=== PATIENT | female | born 1945 | race African-American/Black ===

== ENCOUNTER 2021-11-17 15:14 | Emergency (ER) | payer MEDICAID, OTHER ==
[~2021-11-17] VITALS: Ht 167.6 cm; Wt 73.0 kg
[2021-11-17] MEDS ORDERED: PIPERACILLIN/TAZ 3.375G PREMIX 50 ML IV ONE (15:45)
[2021-11-17] MEDS: VANCOMYCIN 1G PREMIX 200 ML IV ONE (15:45)
[2021-11-17] MEDS: SODIUM CHLORIDE 0.9% 1000ML BAG (SEPSIS BOLUS) IV ONE ×2 (15:45→21:00)
[2021-11-17] MEDS: ONDANSETRON HCL 4MG/2ML INJ IV STA (15:47)
[2021-11-17] MEDS: MORPHINE SULFATE 4 MG/ML CPJ (NOT FOR IM USE) IV STA (15:47)
[2021-11-17] MEDS: LEVOFLOXACIN 750MG PREMIX 150 ML IV ONE (16:00)
[2021-11-17] MEDS ORDERED: VANCOMYCIN 1G PREMIX 200 ML IV ONE (16:00)
[2021-11-17 17:13] LABS: BASOPHILS % 0.6 % (0.0-2.0); EOSINOPHILS % 1.2 % (0.0-5.0); HEMATOCRIT. 39.9 % (36.0-48.0); HEMOGLOBIN. 12.5 g/dL (12.0-16.0); LYMPHOCYTES % 13.2 % (20.0-50.0); MEAN CORPUSCULAR HEMOGLOBIN 28.4 pg (28.0-32.0); MEAN CORPUSCULAR VOLUME 90.9 fL (81.0-99.0); MEAN PLATELET VOLUME 10.2 fl (7.4-10.4); MONOCYTES % 5.9 % (2.0-8.0); NEUTROPHILS % 79.1 % (40.0-76.0); PLATELET 315 x1000/uL (130-400); RED BLOOD CELL COUNT 4.38 mill/uL (4.2-5.4); RED CELL DISTRIBUTION WIDTH 18.1 % (11.6-14.6)
[2021-11-17 17:20] LABS: CHLORIDE 109 mEq/L (98-107); INR 1.2; PARTIAL THROMBOPLASTIN TIME 25.8 sec (23.4-31.0); PROTHROMBIN TIME 12.4 sec (9.6-11.0)
[2021-11-17] MEDS ORDERED: ONDANSETRON HCL 4MG/2ML INJ IV ONE (20:15)
[2021-11-17] MEDS: VANCOMYCIN 1G PREMIX 200 ML IV NR (21:12)
[2021-11-17 21:54] VITALS: BP 135/82
[2021-11-17 22:39] LABS: CLARITY URINE CLEAR (CLEAR); COLOR URINE YELLOW (YELLOW); KETONES URINE 1+ (NEGATIVE); LEUKOCYTE ESTERASE URINE 2+ (NEGATIVE); NITRITE URINE NEGATIVE (NEGATIVE); OCCULT BLOOD URINE TRACE (NEGATIVE); PROTEIN URINE 1+ (NEGATIVE); SPECIFIC GRAVITY URINE 1.025 (1.005-1.030); UROBILINOGEN URINE 0.2 E.U./dL (0.2-1.0)
== END 2021-11-17 22:35 | disposition short-term general hospital (02) ==
LOC: ER 15:14 → EDBEDREQSVC 15:52 → EDBEDREQTM 15:52 → EDBEDREQ 15:52 → ER 22:35 → CANBEDREQ 22:40
DX: R10.84 Generalized abdominal pain (principal); E86.0 Dehydration; R11.2 Nausea with vomiting, unspecified; E11.9 Type 2 diabetes mellitus without complications; Z88.6 Allergy status to analgesic agent; Z88.0 Allergy status to penicillin; Z88.8 Allergy status to other drugs, medicaments and biological substances
CPT/HCPCS: 36415; 71045; 74176; 80053; 81003; 82962; 83605; 83690; 83880; 84145; 84484; 85025; 85610; 85730; 87040; 87086; 87426; 93005; 96365; 96366; 96367; 96375; 99285; C9803; J1956; J2270; J2405; J3370; J7030

== ENCOUNTER 2021-11-28 22:27 | Inpatient (IN) | payer OTHER, MEDICAID ==
[~2021-11-28] VITALS: Ht 165.1 cm; Wt 67.1 kg
[2021-11-28] MEDS ORDERED: SODIUM CHLORIDE 0.9% 1,000 ML IV ONE (23:00)
[2021-11-29] MEDS ORDERED: DILTIAZEM HCL 5MG/ML 5ML VIAL IV ONE
[2021-11-29 00:38] LABS: BASOPHILS % 0.7 % (0.0-2.0); EOSINOPHILS % 0.5 % (0.0-5.0); HEMATOCRIT. 37.2 % (36.0-48.0); HEMOGLOBIN. 11.8 g/dL (12.0-16.0); MEAN PLATELET VOLUME 11.5 fl (7.4-10.4); MONOCYTES % 6.9 % (2.0-8.0); NEUTROPHILS % 82.9 % (40.0-76.0); PLATELET 334 x1000/uL (130-400); RED BLOOD CELL COUNT 4.22 mill/uL (4.2-5.4); RED CELL DISTRIBUTION WIDTH 18.3 % (11.6-14.6)
[2021-11-29 00:44] LABS: CHLORIDE 106 mEq/L (98-107); INR 1.1; PROTHROMBIN TIME 12.1 sec (9.6-11.0)
[2021-11-29] MEDS ORDERED: ENOXAPARIN 60MG/0.6ML SYR SUBCUT ONE (01:30)
[2021-11-29] MEDS ORDERED: IOHEXOL-350 100 ML BOTTLE ONE (02:15)
[2021-11-29] MEDS ORDERED: DILTIAZEM 125MG/125ML PMX 125 ML IV NR ×2 (02:30→03:00)
[2021-11-29] MEDS ORDERED: SODIUM CHLORIDE 0.9% 1,000 ML IV ONE (03:00)
[2021-11-29] MEDS ORDERED: HEPARIN 5000 UNITS/ML VIAL IV ONE (05:00)
[2021-11-29] MEDS ORDERED: HEPARIN 25,000 UNITS PREMIX 250 ML IV ONE (05:00)
[2021-11-29] MEDS ORDERED: HEPARIN BOLUS PRN aPTT 37-44 IV ×2 (05:15→12:00)
[2021-11-29] MEDS ORDERED: HEPARIN 80 UNITS/KG BOLUS IV SCH ×2 (05:15→06:00)
[2021-11-29] MEDS: HEPARIN 25,000 UNITS PREMIX 250 ML IV SCH ×2 (06:36→22:04)
[2021-11-29] MEDS ORDERED: CLONIDINE 0.1MG TABLET PO PRN (07:45)
[2021-11-29] MEDS ORDERED: ACETAMINOPHEN 325MG TABLET PO PRN ×2 (07:45)
[2021-11-29] MEDS ORDERED: MAGNESIUM/ALUMINUM HYDROXIDE/SIMETHICONE 30ML UDC PO PRN (07:45)
[2021-11-29] MEDS ORDERED: GUAIFENESIN 200MG/10ML SUGAR FREE UDC PO PRN (07:45)
[2021-11-29] MEDS ORDERED: IPRATROPIUM/ALBUTEROL 0.5-3(2.5)MG/3ML NEB NEB PRN (07:45)
[2021-11-29] MEDS ORDERED: ONDANSETRON HCL 4MG/2ML INJ IV PRN (07:45)
[2021-11-29] MEDS: HYDROCODONE/ACETAMINOPHEN 5/325MG TABLET PO PRN (09:05)
[2021-11-29] MEDS ORDERED: HEPARIN BOLUS PRN aPTT <36 IV (12:00)
[2021-11-29 12:04] LABS: BASOPHILS % 0.5 % (0.0-2.0); EOSINOPHILS % 0.5 % (0.0-5.0); HEMATOCRIT. 35.1 % (36.0-48.0); HEMOGLOBIN. 11.2 g/dL (12.0-16.0); LYMPHOCYTES % 8.4 % (20.0-50.0); MEAN CORPUSCULAR VOLUME 88.1 fL (81.0-99.0); MEAN PLATELET VOLUME 10.9 fl (7.4-10.4); MONOCYTES % 6.7 % (2.0-8.0); NEUTROPHILS % 83.9 % (40.0-76.0); PLATELET 339 x1000/uL (130-400); RED BLOOD CELL COUNT 3.99 mill/uL (4.2-5.4); RED CELL DISTRIBUTION WIDTH 18.1 % (11.6-14.6)
[2021-11-29] MEDS: METOPROLOL TARTRATE 25MG TABLET PO SCH ×3 (12:05→22:00)
[2021-11-29 12:10] LABS: CHLORIDE 111 mEq/L (98-107)
[2021-11-29 12:18] LABS: CREATINE KINASE MB FRACTION 5.3 ng/mL (0.5-3.6)
[2021-11-29 12:24] LABS: PHOSPHORUS 2.8 mg/dL (2.5-4.9); T4 FREE 1.58 ng/dL (0.76-1.46); TOTAL IRON BINDING CAPACITY 120 ug/dL (250-450)
[2021-11-29 14:00] VITALS: BP 100/50
[2021-11-29 15:00] VITALS: BP 120/70
[2021-11-29 15:14] VITALS: BP 120/60
[2021-11-29 16:03] VITALS: BP 116/70
[2021-11-29] MEDS ORDERED: NALOXONE HCL 0.4MG/ML VIAL IV PRN (17:15)
[2021-11-29 18:26] LABS: FOLIC ACID (FOLATE) SERUM 5.9 ng/mL (>5.38)
[2021-11-29 19:29] LABS: CREATINE KINASE MB FRACTION 5.1 ng/mL (0.5-3.6)
[2021-11-29 20:00] VITALS: BP 127/68
[2021-11-29 22:07] VITALS: BP 102/75
[2021-11-30] VITALS (17 sets, daily range): BP systolic 96–132; BP diastolic 55–89
[2021-11-30 02:13] LABS: BASOPHILS % 0.5 % (0.0-2.0); EOSINOPHILS % 0.7 % (0.0-5.0); HEMATOCRIT. 36.8 % (36.0-48.0); HEMOGLOBIN. 11.9 g/dL (12.0-16.0); LYMPHOCYTES % 8.5 % (20.0-50.0); MEAN CORPUSCULAR HEMOGLOBIN 28.6 pg (28.0-32.0); MONOCYTES % 6.6 % (2.0-8.0); NEUTROPHILS % 83.7 % (40.0-76.0); PLATELET 379 x1000/uL (130-400); RED BLOOD CELL COUNT 4.18 mill/uL (4.2-5.4); RED CELL DISTRIBUTION WIDTH 18.6 % (11.6-14.6)
[2021-11-30 02:21] LABS: CHLORIDE 112 mEq/L (98-107)
[2021-11-30] MEDS: METOPROLOL TARTRATE 25MG TABLET PO SCH (08:24)
[2021-11-30] MEDS ORDERED: METOPROLOL TARTRATE 50MG TABLET PO SCH ×2 (09:00→21:00)
[2021-11-30] MEDS ORDERED: METOPROLOL TARTRATE 25MG TABLET PO NR (09:15)
[2021-11-30] MEDS: HEPARIN 25,000 UNITS PREMIX 250 ML IV SCH ×2 (11:35→13:49)
[2021-11-30] MEDS: HYDROCODONE/ACETAMINOPHEN 5/325MG TABLET PO PRN (11:43)
[2021-11-30] MEDS ORDERED: APIXABAN 5 MG TABLET PO SCH (18:00)
[2021-11-30] MEDS ORDERED: METOPROLOL TARTRATE 25MG TABLET PO SCH (18:00)
[2021-11-30] MEDS: APIXABAN 5 MG TABLET PO SCH (18:32)
[2021-12-01] VITALS (15 sets, daily range): BP systolic 101–143; BP diastolic 60–103
[2021-12-01] MEDS: METOPROLOL TARTRATE 25MG TABLET PO SCH ×2 (08:36→21:18)
[2021-12-01] MEDS: APIXABAN 5 MG TABLET PO SCH ×2 (08:37→16:43)
[2021-12-07] MEDS ORDERED: APIXABAN 5 MG TABLET PO SCH (09:00)
== END 2021-12-01 22:00 | disposition short-term general hospital (02) | DRG 175 ==
LOC: ER 22:27 → EDBEDREQSVC 11-29 01:18 → EDBEDREQ 11-29 01:18 → EDBEDREQTM 11-29 01:18 → MICUSO 11-29 02:24 → EDBEDREQSVC 11-29 02:29 → EDBEDREQTM 11-29 02:29 → EDBEDREQ 11-29 02:29 → SUPCPDRO 11-29 07:34 → ENRESERV 11-29 07:47 → 5EST 11-29 14:06
PROVIDERS: ADMIT Internal Medicine; ATTEND Internal Medicine
DX: I26.99 Other pulmonary embolism without acute cor pulmonale (principal); G93.41 Metabolic encephalopathy; I82.403 Acute embolism and thrombosis of unspecified deep veins of lower extremity, bilateral; R62.7 Adult failure to thrive; I48.91 Unspecified atrial fibrillation; I11.0 Hypertensive heart disease with heart failure; E78.00 Pure hypercholesterolemia, unspecified; E78.5 Hyperlipidemia, unspecified; E11.69 Type 2 diabetes mellitus with other specified complication; I50.9 Heart failure, unspecified; Z20.822 Contact with and (suspected) exposure to COVID-19; Z88.0 Allergy status to penicillin; Z74.01 Bed confinement status; Z68.24 Body mass index [BMI] 24.0-24.9, adult; Z88.8 Allergy status to other drugs, medicaments and biological substances; Z79.02 Long term (current) use of antithrombotics/antiplatelets; Z79.84 Long term (current) use of oral hypoglycemic drugs; Z89.412 Acquired absence of left great toe
CPT/HCPCS: 36415; 71045; 71275; 80048; 80053; 82550; 82553; 82607; 82728; 82746; 83540; 83550; 83605; 83735; 83880; 84100; 84145; 84439; 84443; 84484; 85025; 85379; 87426; 93005; 93306; 93970; 99291; J1644; J1650; J3490; J7030; Q9967

== ENCOUNTER 2021-12-20 16:15 | Emergency (ER) | payer OTHER, MEDICAID ==
[~2021-12-20] VITALS: Ht 170.2 cm; Wt 73.0 kg
[2021-12-20] MEDS ORDERED: HYDROCODONE/ACETAMINOPHEN 5/325MG TABLET PO ONE (18:00)
[2021-12-20 19:47] LABS: BASOPHILS % 0.6 % (0.0-2.0); EOSINOPHILS % 0.6 % (0.0-5.0); HEMATOCRIT. 38.6 % (36.0-48.0); HEMOGLOBIN. 12.8 g/dL (12.0-16.0); LYMPHOCYTES % 10.5 % (20.0-50.0); MEAN CORPUSCULAR HEMOGLOBIN 29.2 pg (28.0-32.0); MEAN CORPUSCULAR VOLUME 88.1 fL (81.0-99.0); MEAN PLATELET VOLUME 10.4 fl (7.4-10.4); MONOCYTES % 3.7 % (2.0-8.0); NEUTROPHILS % 84.6 % (40.0-76.0); PLATELET 312 x1000/uL (130-400); RED BLOOD CELL COUNT 4.39 mill/uL (4.2-5.4); RED CELL DISTRIBUTION WIDTH 19.6 % (11.6-14.6)
[2021-12-20 19:58] LABS: CHLORIDE 104 mEq/L (98-107)
[2021-12-20] MEDS ORDERED: POTASSIUM CHLORIDE 20MEQ/PACKET PO ONE (20:15)
[2021-12-20] MEDS ORDERED: POTASSIUM CHLORIDE 20MEQ TABLET SR PO ONE (21:15)
[2021-12-20 21:53] VITALS: BP 156/89
== END 2021-12-20 22:54 | disposition short-term general hospital (02) ==
LOC: ER 16:15 → CANBEDREQ 12-22 08:37
DX: S72.012A Unspecified intracapsular fracture of left femur, initial encounter for closed fracture (principal); E11.9 Type 2 diabetes mellitus without complications; E78.00 Pure hypercholesterolemia, unspecified; F20.9 Schizophrenia, unspecified; I10 Essential (primary) hypertension; Z74.01 Bed confinement status; Z88.6 Allergy status to analgesic agent; Z88.0 Allergy status to penicillin; Z20.822 Contact with and (suspected) exposure to COVID-19; W06.XXXA Fall from bed, initial encounter; Y93.89 Activity, other specified; Y92.018 Other place in single-family (private) house as the place of occurrence of the external cause
CPT/HCPCS: 36415; 70450; 71045; 72170; 80053; 83880; 84484; 85025; 87426; 93005; 99285; C9803